=== PATIENT | male | born 1965 | race Caucasian/White ===

== ENCOUNTER → 2017-10-14 | Outpatient (CLI) | payer OTHER | END | disposition home or self-care (01) | LOC: KCIC 11:38 | DX: M25.551 Pain in right hip (principal) | CPT/HCPCS: 73502 ==

== ENCOUNTER → 2020-05-24 | Outpatient (CLI) | payer OTHER ==
--- NOTE | 2020-05-24 11:40 | KCIC ---
EXAMINATION: Magnetic resonance imaging (MRI) of the lumbar spine without contrast 05/24/2020 9:35 AM HISTORY: Low back pain TECHNIQUE: Multiplanar multi-weighted MRI of the lumbar spine was performed without intravenous contr ast using the standard lumbar spine protocol. Contrast information: None administered. COMPARISON: None available. FINDINGS: There is minimal retrolisthesis of L4 on L5 and L5 on S1. Vertebral body heights are maintained. Andres ow signal intensity is normal in all sequences. There is no significant marrow edema. No acute fractu re is identified. Conus medullaris limits of L1. Distal spinal cord signal intensity is normal in all sequences. There is mild disc height loss at L1-L2 and L2-L3. Disc desiccation is identified at all levels of the lumbar spine. Annular fissures identified at L3-L4. Abdominal aorta is normal in calibe r. No suspicious intracranial abnormality is identified. Versus portions of the sacrum appear intact. L1-L2: Mild disc bulge. No significant facet arthropathy. No neuroforaminal or spinal canal stenosis. L2-L3: There is mild disc bulge with left foraminal disc protrusion. No significant facet arthropathy . Mild left neuroforaminal stenosis. No spinal canal stenosis. L3-L4: There is a circumferential disc bulge with left far lateral annular fissure. No significant fa cet arthropathy. There is a right central disc protrusion. Mild narrowing the right lateral recess. M ild spinal canal stenosis. No significant neuroforaminal stenosis. L4-L5: There is a circumferential disc bulge with central annular fissure. Mild facet arthropathy. Mi ld bilateral neuroforaminal stenosis. No spinal canal stenosis. L5-S1: There is a circumferential disc bulge asymmetric to the left with left central disc protrusion . Mild facet arthropathy. Mild left foraminal stenosis. No spinal canal stenosis. IMPRESSION: Mild degenerative changes of the lumbar spine, as described in detail above. Electronically signed by: Layla Pavon MD (05/24/2020 11:37 AM) [id number]
== END ==
LOC: KCIC MRI 09:26
PROVIDERS: ATTEND Family Medicine
DX: M47.817 Spondylosis without myelopathy or radiculopathy, lumbosacral region (principal); M48.07 Spinal stenosis, lumbosacral region; M51.27 Other intervertebral disc displacement, lumbosacral region
CPT/HCPCS: 72148